=== PATIENT | female | born 1940 | race Caucasian/White ===

== ENCOUNTER → 2017-05-13 | Outpatient (CLI) | payer MEDICARE, OTHER ==
[~2017-05-13] MED LIST: ACHD5005 PO; ASPI-504 PO; CYCL5TAB PO; IBUP-1773 PO; MTP25TSR PO; OMEP20CA12 PO; [UNRECOGNIZED DRUG - CODE] PO
--- NOTE | 2017-05-13 12:17 | Diagnostic Imaging Report ---
Examination: DEXA scan. Indication: osteopenia Technique: Bone mineral density estimated based on dual energy radiography over the lumbar spine and femoral necks, was performed. Findings: The lumbar spine T-score is 4.1. The T score over the left femoral neck is 0.7 and on the right is -0.2. IMPRESSION: Bone mineral density measurements are within normal limits. Please note that the lumbar spine measurements are significantly exaggerated by superimposed sclerotic degenerative changes. Dictated by: Dictated on workstation # [id number]
--- NOTE | 2017-05-13 22:24 | Diagnostic Imaging Report ---
EXAMINATION: Transabdominal and transvaginal pelvic ultrasound. INDICATION: Abnormal uterine bleeding. FINDINGS: The uterus is 6.2 x 4.4 x 3.1 cm. The endometrial stripe is 2 mm in thickness. The myometrium is slightly heterogenous with no discrete mass. The ovaries are not seen, potentially obscured by bowel gas and atrophic. The urinary bladder appears unremarkable. IMPRESSION: The ovaries are not seen. No significant endometrial thickening or underlying endometrial lesion identified. Dictated by: Dictated on workstation # [id number]
--- NOTE | 2017-05-14 13:36 | Diagnostic Imaging Report ---
Bilateral screening mammogram 2D views with tomosynthesis. The current study was also evaluated with a Computer Aided Detection (CAD) system. INDICATION: Screening. No current complaints stated on the questionnaire. COMPARISON: 06/22/14. FINDINGS: The breasts are composed of scattered fibroglandular densities. There are occasional punctate calcifications seen. There are scattered benign-appearing calcifications. Allowing for technique and positional differences, no suspicious change is seen. IMPRESSION: No significant change. ACR BI-RADS Category 2: Benign findings. Result letter will be mailed to the patient. Note: At least 10% of breast cancer is not imaged by mammography. Dictated on workstation # [id number]
== END ==
LOC: RAD 09:41
PROVIDERS: ATTEND Nurse Practitioner Family
DX: Z12.31 Encounter for screening mammogram for malignant neoplasm of breast (principal); Z78.0 Asymptomatic menopausal state; N93.9 Abnormal uterine and vaginal bleeding, unspecified
CPT/HCPCS: 76830; 76856; 77067; 77080